=== PATIENT | male | born 1990 | race African-American/Black ===

== ENCOUNTER 2019-12-30 11:54 | Emergency (ER) | payer MEDICAID ==
[~2019-12-30] VITALS: Ht 175.3 cm; Wt 122.7 kg
[2019-12-30 11:57] VITALS: BP 166/112; Ht 175.3 cm; Wt 122.7 kg
[2019-12-30] MEDS ORDERED: DILAUDID2 MG PO (11:59)
[2019-12-30] MEDS ORDERED: FOLIC ACID1 MG PO (11:59)
[2019-12-30 12:52] LABS: CALC OSMOLALITY 282 mosm/kg (275-300); CALCIUM 8.8 mg/dL (8.5-10.1); CARBON DIOXIDE 28.8 mmol/L (21.0-32.0); CHLORIDE - SERUM 105 mmol/L (98-107); CREATININE - SERUM 0.9 mg/dL (0.6-1.3); GLUCOSE 175 mg/dL (74-106); POTASSIUM - SERUM 3.5 mmol/L (3.5-5.1); SODIUM 141 mmol/L (136-145); UREA NITROGEN 7 mg/dL (7-18); eGFR NON AFRICAN AMERICAN > 90 mL/min (90-120)
[2019-12-30 12:56] LABS: HEMATOCRIT 38.7 % (42.0-54.0); HEMOGLOBIN 12.5 g/dL (13.5-17.5); MCH 26.5 pg (26.0-34.0); MCHC 32.3 g/dL (31.0-37.0); MEAN PLATELET VOLUME 9.7 fL (7.4-10.4); NEUTROPHILS 56.3 % (40-80); PLATELET COUNT 109 10x3/uL (130-400); RBC 4.72 10x6/uL (4.20-6.10); RDW 16.3 % (11.5-14.5)
[2019-12-30 13:04] LABS: ALBUMIN 3.7 g/dL (3.4-5.0); ALKALINE PHOSPHATASE 69 U/L (30-120); ALT (SGPT) 28 U/L (10-68); BILIRUBIN - TOTAL 0.68 mg/dL (0.2-1.3); PROTEIN - SERUM 7.4 g/dL (6.4-8.2)
[2019-12-30 13:05] LABS: CREATINE KINASE 201 UL (21-232); TROPONIN-I < 0.017 ng/mL (0.000-0.060)
[2019-12-30 13:27] LABS: BILIRUBIN NEGATIVE (NEGATIVE); GLUCOSE NEGATIVE (NEGATIVE); KETONE NEGATIVE (NEGATIVE); NITRITE NEGATIVE (NEGATIVE); UROBILINOGEN NORMAL (NORMAL)
== END 2019-12-30 14:08 | disposition home or self-care (01) ==
LOC: D.ER 11:54
PROVIDERS: Family Medicine
DX: M79.601 Pain in right arm (principal); D57.1 Sickle-cell disease without crisis; Z76.5 Malingerer [conscious simulation]